=== PATIENT | male | born 1960 | race Caucasian/White ===

== ENCOUNTER → 2020-04-14 | Outpatient (CLI) | payer OTHER ==
[~2020-04-14] MED LIST: CIPROFLOXACIN500 M1 PO; HYDROCODON-ACE1 EAC4 PO; VITAMIN D3125 MCG PO
== END ==
LOC: KOH-I 13:09
DX: R22.31 Localized swelling, mass and lump, right upper limb (principal)
CPT/HCPCS: 76881

== ENCOUNTER → 2020-04-19 | Outpatient (CLI) | payer OTHER | LOC: KOH-I 13:00 | DX: R22.30 Localized swelling, mass and lump, unspecified upper limb (principal) | CPT/HCPCS: 73218 ==

== ENCOUNTER → 2020-05-10 | Day surgery (SDC) | payer OTHER | END | disposition home or self-care (01) | LOC: OR 06:57 | DX: M79.89 Other specified soft tissue disorders (principal); E78.5 Hyperlipidemia, unspecified; F17.210 Nicotine dependence, cigarettes, uncomplicated; N40.0 Benign prostatic hyperplasia without lower urinary tract symptoms; Z83.3 Family history of diabetes mellitus; Z80.9 Family history of malignant neoplasm, unspecified; Z82.0 Family history of epilepsy and other diseases of the nervous system; Z90.49 Acquired absence of other specified parts of digestive tract; Z79.899 Other long term (current) drug therapy; Z20.822 Contact with and (suspected) exposure to COVID-19 | CPT/HCPCS: J0690; J1100; J2001; J2405; J2704; J3010; J7120 ==

== ENCOUNTER → 2020-06-12 | Day surgery (SDC) | payer OTHER | END | disposition home or self-care (01) | LOC: OR 10:49 | DX: N41.0 Acute prostatitis (principal); N41.1 Chronic prostatitis; Z80.42 Family history of malignant neoplasm of prostate; Z90.49 Acquired absence of other specified parts of digestive tract; Z79.899 Other long term (current) drug therapy | CPT/HCPCS: J7040 ==

== ENCOUNTER 2020-12-15 08:27 | Emergency (ER) | payer OTHER ==
[~2020-12-15] VITALS: Ht 180.3 cm; Wt 106.6 kg
== END 2020-12-15 12:40 | disposition home or self-care (01) ==
LOC: ER1 08:27
DX: Z23 Encounter for immunization (principal); U07.1 COVID-19; Z90.49 Acquired absence of other specified parts of digestive tract
CPT/HCPCS: 99283; M0243